=== PATIENT | female | born 1955 | race Caucasian/White ===

== ENCOUNTER 2017-01-06 07:29 | Day surgery (SDC) | payer BC ==
[2017-01-05 11:38] LABS: BASOPHILS 0.8 %; BASOPHILS ABSOLUTE 0.05 10/3/uL (0.0-0.16); EOSINOPHILS 1.1 %; EOSINOPHILS ABSOLUTE 0.07 10/3/uL (0.0-0.53); HEMATOCRIT 39.5 % (36.0-48.0); IMMATURE GRANULOCYTES 0.2 %; IMMATURE GRANULOCYTES ABSOLUTE 0.01 10/3/uL (0.0-0.11); LYMPHOCYTES 35.9 %; LYMPHOCYTES ABSOLUTE 2.32 10/3/uL (0.67-4.30); MEAN CORPUS HGB CONC 32.9 g/dL (32.0-36.0); MEAN CORPUSCULAR HEMOGLOB 30.8 pg (26.0-34.0); MEAN PLATELET VOLUME 8.9 fL (9.2-13.0); MONOCYTES 7.1 %; MONOCYTES ABSOLUTE 0.46 10/3/uL (0.21-1.20); NEUTROPHILS 54.9 %; NEUTROPHILS ABSOLUTE 3.56 10/3/uL (2.02-8.40); PLATELET COUNT 350 10/3/uL (150-400); RBC DISTRIBUTION WIDTH 13.2 % (12.0-16.0); RED CELL COUNT 4.22 10/6/uL (4.0-5.6)
[2017-01-05 11:43] LABS: MANUAL DIFF NO %; MEAN CORPUSCULAR VOLUME 93.6 fL (80-100); WHITE BLOOD CELLS 6.5 10/3/uL (4.5-10.5)
[2017-01-05 11:55] LABS: A/G RATIO 1.2 (0.7-1.9); ALBUMIN 3.9 G/DL (3.5-5.0); ALKALINE PHOSPHATASE 78 U/L (45-117); CALCIUM, SERUM 9.1 MG/DL (8.5-10.4); CHLORIDE, SERUM 104 MMOL/L (96-112); CO2 (CARBON DIOXIDE) 28 MMOL/L (24-34); CREATININE 0.53 MG/DL (0.55-1.02); GFR AFRICAN AMERICAN 120 ML/MIN (>=60); GFR NON AFRICAN AMERICAN 103 ML/MIN (>=60); GLOBULIN 3.3 G/DL (2.5-4.1); GLUCOSE, SERUM 103 MG/DL (60-99); POTASSIUM, SERUM 3.6 MMOL/L (3.5-5.3); SGOT(AST) 15 U/L (5-40); SGPT(ALT) 26 U/L (5-65); SODIUM, SERUM 139 MMOL/L (135-148); TOTAL BILIRUBIN 0.3 MG/DL (0-1.2); TOTAL PROTEIN 7.2 G/DL (6.0-8.5)
[2017-01-05 11:57] LABS: BUN (BLOOD UREA NITROGEN) 7 MG/DL (6-23)
[~2017-01-06] VITALS: Ht 165.1 cm; Wt 72.1 kg
--- NOTE | ~2017-01-06 | PREOPHP ---
PreOp History and Physical [facility] [address] [facility] [place]. [address] NAME: ABHIJEET ECHEVERRIA : 57 STATUS : [facility]#: [id number] AGE: 61 ADM/REG DATE : 01/06/17 MR#: [id number] REPORT SERV DATE: 01/07/17 DICTATED BY: RENE YEPEZ III DATE: 01/02/17 REPORT STATUS : Draft TRANSCRIBED BY: ALDAIR DATE: 01/02/17 HISTORY OF PRESENT ILLNESS: This 61-year-old female comes to the operating room for left breast lumpectomy with a stereotactic wire localization, sentinel lymph node biopsy, and possible axillary dissection for biopsy-proven invasive cancer of the left breast. The patient recently had a routine mammogram. This mammogram showed an abnormal lesion of concern located at the 11 o'clock position in the left breast. This was a 0.5 cm irregular nodule at the 11 o'clock position consistent with malignancy. She underwent ultrasound- directed core needle biopsy, showing an invasive ductal carcinoma, low grade. The patient has been offered the option of breast conservative therapy versus mastectomy. The pros and cons, advantages, and disadvantages of each were discussed with the patient prior to surgery. She has elected to have breast conservative therapy. She comes now for left breast lumpectomy with stereotactic wire localization, sentinel lymph node biopsy, and possible axillary lymph node dissection. The procedure, risks, benefits, and alternatives regarding this have been explained to the patient. The patient has a family history for breast cancer in that her mother had breast cancer. PAST MEDICAL HISTORY: History of ovarian cyst and history of narrow-angle glaucoma. MEDICATIONS: Prempro, Wellbutrin, and vitamins. FAMILY HISTORY: Positive for mother with breast cancer and father with diabetes. SOCIAL HISTORY: The patient has a history of alcohol use and previous history of tobacco use. ALLERGIES: ERYTHROMYCIN. REVIEW OF SYSTEMS: The patient's 14-point review of systems is otherwise unremarkable. She has had no breast pain, tenderness, or palpable masses that she is aware of. PHYSICAL EXAMINATION: GENERAL: This is a female, in no acute distress. She is alert and oriented x3. VITAL SIGNS: Blood pressure 135/79, pulse 94, temperature 97. HEENT: Unremarkable. NECK: Unremarkable with no adenopathy. LUNGS: Clear. CARDIAC: Normal. BREASTS: Her right breast is unremarkable with no palpable masses or nodules. The right nipple is normal without discharge. The right axilla is normal with no adenopathy. The left breast is unremarkable with no palpable masses or nodules. The left nipple is normal without discharge. The left axilla is normal with no adenopathy. The patient was examined in both supine and sitting positions. EXTREMITIES: Normal. PreOp History and Physical [address] [address] NAME: ABHIJEET ECHEVERRIA : 57 STATUS : [facility] PAT#: [id number] AGE: 61 ADM/REG DATE : 01/06/17 MR#: [id number] REPORT SERV DATE: 01/07/17 DICTATED BY: RENE YEPEZ III DATE: 01/02/17 REPORT STATUS : Draft TRANSCRIBED BY: ALDAIR DATE: 01/02/17 LABORATORY DATA: Recent bilateral mammogram showed a 0.5 cm irregular nodule at the 11 o'clock position of the left breast with concern for malignancy. Ultrasound-directed core needle biopsy was performed, confirming invasive ductal carcinoma, grade 1. ASSESSMENT: 61-year-old female with biopsy-proven invasive cancer of the left breast. PLAN: The patient comes to the operating room now for left breast lumpectomy with ultrasound directed localization, sentinel lymph node biopsy, and possible axillary lymph node dissection if her sentinel lymph node is found to contain malignancy. The option of a mastectomy has been offered to the patient, but declined. Regarding the surgery, the procedure, risks, benefits, and alternatives including, but not limited to the risk for bleeding; infection; pain; swelling; scarring; deformity to the breast; seroma formation; hematoma formation; nerve injury; chronic paresthesia or pain in the arm, shoulder, or axilla; nerve injury, muscle weakness, or paralysis in the muscles of upper back or shoulder; chronic lymphedema of the arm; positive localization, about a 10% risk of need to return to the operating room for completion axillary dissection if there is a discrepancy between frozen section and final pathology report, and also a 10% to 12% risk of need to return for a completion mastectomy or wider margins in order to obtain clear margins; and unforeseen complications including deep venous thrombosis, pulmonary embolus, myocardial infarction, stroke, pneumonia, and have been explained to the patient prior to surgery. Her questions have been answered, and she understands the risks and agrees to surgery as planned. RHJ/MODL Rene Yepez III, M.D. / [id number] CC: Mima Swenson III, M.D.
--- NOTE | ~2017-01-06 | OP ---
Record Of Operation [facility] [address] [place]. [address] NAME: ABHIJEET ECHEVERRIA : 57 STATUS : [facility]#: [id number] AGE: 61 ADM/REG DATE : 01/06/17 MR#: [id number] REPORT SERV DATE: 01/06/17 DICTATED BY: RENE YEPEZ III DATE: 01/06/17 REPORT STATUS : Draft TRANSCRIBED BY: ALDAIR DATE: 01/06/17 DATE OF PROCEDURE: 01/06/2017 PREOPERATIVE DIAGNOSIS: Invasive ductal carcinoma of the left breast. POSTOPERATIVE DIAGNOSIS: Invasive ductal carcinoma of the left breast. PROCEDURE: Left breast lumpectomy with sentinel lymph node biopsy and stereotactic wire localization. ANESTHESIA: General with intubation. COMPLICATIONS: None. ESTIMATED BLOOD LOSS: Less than 5 mL. SPECIMENS: Lumpectomy specimen was revised 6 to 9 o'clock margin and sentinel lymph node from left axilla. DRAINS: None. LAP AND SPONGE COUNT: Correct x3. BRIEF HISTORY: This 61-year-old female presented with a biopsy-proven invasive ductal cancer of the left breast. This is located at the 2 o'clock position in the upper outer quadrant of the left breast. It was felt that a left breast lumpectomy with sentinel lymph node biopsy and possible axillary dissection, if her sentinel lymph node was positive for malignancy, was indicated. This procedure, the risks, benefits, and alternatives, including but not limited to the risk for bleeding, infection, pain, swelling, scarring, deformity to the breast, change in size of the breast, seroma formation, hematoma formation, nerve injury, chronic paresthesia, pain in the arm, shoulder, or axilla, chronic lymphedema of the arm, nerve injuries, muscle weakness or paralysis in muscles of the upper back or shoulder, possible need to return to the operating room for completion axillary dissection, if there were discrepancies between the frozen section and final pathology on sentinel lymph node, the possible need to return for wider excision or completion mastectomy if there were discrepancies between the frozen section and final pathology were explained the patient. The option of mastectomy was offered to the patient, but declined. The patient had questions, which were answered. She fully understood the risks and agreed to surgery as planned. DESCRIPTION OF PROCEDURE: After being properly identified and after discussing risks of surgery with her again in the preoperative area and after lymphoscintigraphy had been performed per Radiology and after stereotactic wire localization of lesion, consent had been performed per Radiology, the patient was taken to the operating room and placed in supine position on the operating room table. General anesthesia was administered and she was intubated without difficulty. The left breast, chest, arm, and axilla were prepped and Record Of Operation [place] [id number] [facility] [place]. [address] NAME: ABHIJEET ECHEVERRIA : 57 STATUS : [facility]#: [id number] AGE: 61 ADM/REG DATE : 01/06/17 MR#: [id number] REPORT SERV DATE: 01/06/17 DICTATED BY: RENE YEPEZ III DATE: 01/06/17 REPORT STATUS : Draft TRANSCRIBED BY: ALDAIR DATE: 01/06/17 draped sterilely in the usual fashion. After an appropriate "time-out" per [place] standards, a curvilinear elliptical-shaped incision was made at the exit site of the guidewire from the skin in the upper outer quadrant of the left breast and at the 12 o'clock position. The incision was continued through the subcutaneous tissue. Hemostasis was controlled with cautery. The incision was continued widely around the guidewire. The incision was continued down to the major pectoral fascia. The entire block of tissue was resected. The guidewire was kept in the needle of the specimen. The specimen was oriented with sutures. It was sent for specimen imaging and it was interpreted as containing the tumor. The specimen was then sent to Pathology. It was interpreted as containing the tumor with clear margins. It was noted that the 6 to 9 o'clock margin was clear, but closed. For this reason, a revised 6 to 9 o'clock margin was excised appropriately. An additional 1 to 2 cm thickness revised margin was excised. The true margin was marked with ink and this was sent for permanent pathology. We then continued our dissection to the left axilla through the same incision. We identified a single sentinel lymph node using the navigator probe. This lymph node was resected. It was sent for frozen section and was interpreted as being benign. The ex-vivo 10-second count of this lymph node was about 3400. The background count of the axilla after removal of this lymph node was essentially 0/10 seconds. The wound was irrigated copiously with saline. Hemostasis was assured. The subcutaneous tissue was closed with interrupted 3-0 Vicryl sutures. The skin was closed with running subcuticular 4-0 Monocryl stitch. The incision was injected with 0.5% Marcaine. Dressings were applied. Anesthesia was reversed. The patient was taken to the recovery room in stable condition. She tolerated the procedure well. Her family was informed of the results of surgery. The patient will be discharged when stable and comfortable. Her family was advised that she should keep her wound clean and dry for 48 hours and she should not drive for three to four days after surgery or while using narcotics and she should resume her usual medications. She was given a prescription for Percocet 7.5 one t.i.d., #12, as needed for pain, which she was advised not to use while driving. She was asked to return in one week or sooner if any fever, chills, wound drainage, or other problems prior to that time. She has been advised to stop her exogenous hormones because of this malignancy. JCARLOS/ALDAIR Rene Yepez III, M.D. / [id number] CC: Mima Swenson III, M.D.
[~2017-01-06 07:29] MED LIST: MULTIVIT/MIN PO; PREMPRO1 TA2 PO; VITC500 PO; WELLXL300 PO
== END 2017-01-06 17:09 | disposition home or self-care (01) ==
LOC: SDC 07:29
PROVIDERS: Surgery
PROC: 07B60ZX Excision of Left Axillary Lymphatic, Open Approach, Diagnostic (ICD-10-PCS; 2017-01-06)
PROC: 0HBU0ZZ Excision of Left Breast, Open Approach (ICD-10-PCS; principal; 2017-01-06 12:00)
DX: C50.412 Malignant neoplasm of upper-outer quadrant of left female breast (principal); M19.90 Unspecified osteoarthritis, unspecified site; F32.9 Major depressive disorder, single episode, unspecified; Z80.3 Family history of malignant neoplasm of breast; Z83.3 Family history of diabetes mellitus; Z87.442 Personal history of urinary calculi; Z87.891 Personal history of nicotine dependence; Z88.1 Allergy status to other antibiotic agents; Z79.899 Other long term (current) drug therapy; Z90.89 Acquired absence of other organs; Z98.890 Other specified postprocedural states
CPT/HCPCS: 71020; 76098; 78195; 80053; 85025; 88305; 88307; 88331; 88342; 93005; A9541; J0690; J1170; J2250; J2405; J3010